=== PATIENT | female | born 1965 ===

== ENCOUNTER 2021-06-20 09:18 | Day surgery (SDC) | payer MEDICARE ==
[~2021-06-20] VITALS: Ht 165.1 cm; Wt 52.8 kg
[2021-06-20 10:25] VITALS: BP 110/73; PULSE 100; TEMP 98.2
[2021-06-20] MEDS ORDERED: GLUCOPHAGE1000 MG PO (10:29)
[2021-06-20] MEDS ORDERED: MEGACE 40MG40 MG/TAB PO (10:29)
[2021-06-20] MEDS ORDERED: REMERON 15M15 MG/TA1 PO (10:30)
[2021-06-20] MEDS ORDERED: MARINOL 2.5MG2.5 MG PO (10:30)
[2021-06-20] MEDS ORDERED: NOVOLOG 100U100 U/M1 SQ (10:31)
[2021-06-20] MEDS ORDERED: NAPROSYN500 MG PO (10:32)
[2021-06-20] MEDS ORDERED: PRINIVIL2.5 MG PO (10:32)
[2021-06-20] MEDS ORDERED: ZOFRAN 4MG T4 MG/TAB PO (10:33)
[2021-06-20] MEDS ORDERED: SENNA-S 50 MG-81 TAB PO (10:33)
[2021-06-20] MEDS ORDERED: OXY IR5 MG PO (10:34)
[2021-06-20] MEDS ORDERED: MIRALAX PA17 GM/Dose PO (10:34)
[2021-06-20] MEDS ORDERED: MELATONIN5 M1 PO (10:35)
[2021-06-20] MEDS ORDERED: FLEXERIL 1010 MG/TAB PO (10:35)
[2021-06-20] MEDS ORDERED: LANTUS SOLOS100 U/ML SQ (10:35)
[2021-06-20] MEDS ORDERED: VITAMINC500CH PO (10:36)
[2021-06-20] MEDS ORDERED: BENADRYL ALLERG25 M2 PO (10:36)
[2021-06-20] MEDS ORDERED: ULTRAM 50MG TAB50 MG PO (10:37)
[2021-06-20] MEDS ORDERED: OMNICEF 300MG300 MG PO (10:37)
[2021-06-20] MEDS ORDERED: PEPCID COMPLETE1 CTB PO (10:38)
[2021-06-20 13:35] VITALS: BP 107/66; PULSE 78; TEMP 97.9
--- NOTE | 2021-06-20 13:35 | NUR ---
Patient arrived back into [facility] from PACU. Report recieved from KYLE Douglas. Patient doing well. Alert and awake. Sister at bedside. Patient requesting water, maude crackers, and sugar free jello.
[2021-06-20 13:50] VITALS: BP 110/72; PULSE 72
--- NOTE | 2021-06-20 13:50 | NUR ---
Patient reports having some discomfort to operative area. Sister at bedside. Otherwise denies nausea at this time. Tolerated food and drink.
--- NOTE | 2021-06-20 14:00 | NUR ---
Per Dr. Mclain patient to follow up with [facility] on sunday. Patient verbalized understanding to this.
[2021-06-20 14:02] VITALS: TEMP 98.1
--- NOTE | 2021-06-20 14:03 | NUR ---
Tramadol given per MAR. Otherwise patient states she is doing well. Tolerated food and drink, Patient stating pain is tolerable with tramadol.
[2021-06-20 14:05] VITALS: BP 125/71; PULSE 81
--- NOTE | 2021-06-20 14:12 | NUR ---
Went through discharge instructions with patient and sister. Questions answered, patient and sister verbalized understanding to education. IV removed with no complications. Patient got dressed with the assistance of her sister.
--- NOTE | 2021-06-20 14:50 | NUR ---
Patient was able to void. Rest of discharge criteria met. Patient escorted to patient via wheelchair along with sister. Patient independently got into personal truck and was left in the care of her sister.
== END 2021-06-20 14:55 | disposition home or self-care (01) ==
LOC: SDCO 09:18
DX: L76.34 Postprocedural seroma of skin and subcutaneous tissue following other procedure (principal); K68.19 Other retroperitoneal abscess; I10 Essential (primary) hypertension; M19.90 Unspecified osteoarthritis, unspecified site; E11.9 Type 2 diabetes mellitus without complications; Z79.84 Long term (current) use of oral hypoglycemic drugs; Z79.891 Long term (current) use of opiate analgesic; Z79.899 Other long term (current) drug therapy; Z79.4 Long term (current) use of insulin; Z90.89 Acquired absence of other organs; Z98.51 Tubal ligation status; Z83.3 Family history of diabetes mellitus; Z87.891 Personal history of nicotine dependence; Z90.710 Acquired absence of both cervix and uterus
CPT/HCPCS: J0690; J2405; J2704; J3010; J7030